=== PATIENT | female | born 1945 | race Caucasian/White ===

== ENCOUNTER → 2017-01-27 | Outpatient (CLI) | payer MEDICARE, OTHER, BC | END | disposition home or self-care (01) | LOC: CFH 10:59 | PROVIDERS: ATTEND Internal Medicine Gastroenterology | DX: K70.31 Alcoholic cirrhosis of liver with ascites (principal); R16.1 Splenomegaly, not elsewhere classified; K76.0 Fatty (change of) liver, not elsewhere classified; Z90.49 Acquired absence of other specified parts of digestive tract | CPT/HCPCS: 76705 ==

== ENCOUNTER → 2017-08-05 | Outpatient (CLI) | payer MEDICARE, OTHER, BC | END | disposition home or self-care (01) | LOC: CFH 11:17 | PROVIDERS: ATTEND Physician Assistant | DX: I85.10 Secondary esophageal varices without bleeding (principal); K70.31 Alcoholic cirrhosis of liver with ascites; R18.8 Other ascites | CPT/HCPCS: 76705 ==

== ENCOUNTER → 2018-11-10 | Outpatient (CLI) | payer MEDICARE, BC, OTHER | END | disposition home or self-care (01) | LOC: CFH 11:41 | PROVIDERS: ATTEND Physician Assistant | DX: K70.31 Alcoholic cirrhosis of liver with ascites (principal); R16.1 Splenomegaly, not elsewhere classified; Z90.49 Acquired absence of other specified parts of digestive tract | CPT/HCPCS: 76705 ==

== ENCOUNTER 2019-05-12 10:08 | Outpatient (CLI) | payer MEDICARE, OTHER, BC | END 2019-05-12 23:59 | disposition home or self-care (01) | LOC: CFH 10:08 | PROVIDERS: ATTEND Physician Assistant | DX: K70.31 Alcoholic cirrhosis of liver with ascites (principal) | CPT/HCPCS: 76705 ==

== ENCOUNTER 2020-03-09 14:33 | Outpatient (CLI) | payer MEDICARE ==
[2020-03-09] MEDS ORDERED: LIDOCAINE 1%, 10ML ONE (15:10)
== END 2020-03-09 23:59 | disposition home or self-care (01) ==
LOC: RAD 14:33
PROVIDERS: ATTEND Internal Medicine Geriatric Medicine
DX: K70.31 Alcoholic cirrhosis of liver with ascites (principal); Z72.89 Other problems related to lifestyle; M19.90 Unspecified osteoarthritis, unspecified site; Z88.0 Allergy status to penicillin; K21.9 Gastro-esophageal reflux disease without esophagitis
CPT/HCPCS: 49083